=== PATIENT | female | born 1980 | race Caucasian/White ===

== ENCOUNTER → 2016-09-28 | Outpatient (CLI) | payer BC | LOC: LAB 15:52 | DX: R53.83 Other fatigue (principal) | CPT/HCPCS: 36415; 82533; 82627; 82670; 83001; 83002; 84144; 84403; 84481 ==

== ENCOUNTER → 2020-07-09 | Outpatient (CLI) | payer OTHER ==
[~2020-07-09] MED LIST: CLARITIN10 M2 PO; LABETALOL HCL300 MG PO; TOLTERODINE TART4 MG PO
== END ==
LOC: KOH-I 13:00
DX: R10.9 Unspecified abdominal pain (principal); R16.1 Splenomegaly, not elsewhere classified
CPT/HCPCS: 74176

== ENCOUNTER → 2020-07-22 | Outpatient (CLI) | payer OTHER | LOC: KOH-I 16:11 | DX: M54.5 Low back pain (principal); M54.6 Pain in thoracic spine | CPT/HCPCS: 72070; 72100 ==

== ENCOUNTER → 2020-10-04 | Outpatient (CLI) | payer OTHER | LOC: EMI 13:44 | DX: M54.5 Low back pain (principal) | CPT/HCPCS: 72148 ==